=== PATIENT | male | born 1975 | race Two or more races ===

== ENCOUNTER 2018-05-29 09:50 | Day surgery (SDC) | payer OTHER ==
[~2018-05-29 09:50] MED LIST: AVALIDE 300-121 EACH PO; NORVASC5 MG PO
== END 2018-05-29 16:35 | disposition home or self-care (01) ==
LOC: CIR.AMB 09:50
DX: G56.21 Lesion of ulnar nerve, right upper limb (principal); M25.321 Other instability, right elbow